=== PATIENT | female | born 1970 | race Caucasian/White ===

== ENCOUNTER 2021-08-05 18:29 | Emergency (ER) | payer OTHER, SELFPAY ==
--- NOTE | 2021-08-05 18:32 | ED.BACK ---
HPI - Back Pain/Injury General Chief Complaint: Back Pain/Injury Stated Complaint: Back Pain Time Seen by Provider: 08/05/21 18:53 Source: patient and RN notes reviewed Mode of arrival: ambulatory Limitations: no limitations History of Present Illness HPI Narrative: 51-year-old female presents with concern for low back pain that radiates to the right leg. 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 She reports aching her neck and low back. She denies taking any rkon-tnr-kayaygn medications. She denies loss of bowel or bladder function, perianal anesthesia, abdominal pain, fever. She denies any direct trauma. She reports pain shoots down the right leg. Reports difficulty walking due to the pain. MD elicited complaint: back pain Related Data Allergies Allergy/AdvReac Type Severity Reaction Status Date / Time latex Allergy Rash Verified 08/05/21 18:48 Review of Systems Review of Systems: CONSTITUTIONAL: Denies malaise, chills, sweats, or fever. CARDIOVASCULAR: Denies chest pain, palpitations, or edema. RESPIRATORY: Denies cough or dyspnea. GASTROINTESTINAL: Denies abdominal pain, nausea, vomiting, diarrhea, loss of bowel function GENITOURINARY: Denies dysuria, hematuria, frequency, loss of bladder function. SKIN: Denies rash or itching. MUSCULOSKELETAL: Reports low back pain neck pain NEUROLOGIC: Denies numbness, weakness, or headache. All systems reviewed & are unremarkable except as noted in HPI and below PMFSH Comments At time of signature, agree with nursing past medical, surgical, social and family history. There is no relevant family history pertinent to the presenting complaint Exam Narrative: GENERAL: Well-appearing, well-nourished, and in no acute distress. HEAD: Normocephalic, atraumatic. EYES: PERRLA and EOMI. NECK: Supple. No lymphadenopathy. CHEST: Clear to auscultation. No respiratory distress. HEART: Regular rate and rhythm. Distal pulses palpable and equal, cap refill <3 seconds ABDOMEN: Soft, nontender, nondistended, normal active bowel sounds, no palpable or pulsatile masses. No CVA tenderness MUSCULOSKELETAL: 5/5 strength with hip flexion and extension, dorsiflexion and extension, knee flexion and extension, plantar flexion and extension. Normal sensation in dermatomal distributions with sensitivity to light touch and pain. No midline back tenderness to palpation. No paraspinal tenderness. Transfers from lying to sitting to standing. SKIN: Warm, dry, no rash. No ecchymosis, erythema, open wounds to back. NEURO: No focal deficits. Alert and oriented x3. PSYCH: Normal mood and affect Course Course Emergency Course: Discussed transfer to emergency department for further evaluation of back pain, patient does not choose to be transferred to emergency department this time. Ketorolac IM given Patient is aware of diagnosis, understands and agrees to treatment plan. Anticipatory guidance given. Patient agrees to follow-up as directed and is aware of reasons to seek care at the emergency department. Portions of this record may have been created with voice recognition software Level of Care: Express Care Visit Vital Signs Vital signs: Reviewed. MDM - Back Pain/Injury MDM Narrative Medical decision making narrative: Exam findings show no acute concerns or changes; patient is non-toxic appearing and is in no distress. Patient is appropriate for outpatient treatment and follow-up. Critical Care Time Critical Care Time Critical Care Time: No Discharge Plan Discharge Clinical Impression: Nonspecific low back pain Patient Disposition: Home, Self-Care Condition: Stable Instructions: Acute Low Back Pain (ED) Additional Instructions: Please follow up with your Primary Care Doctor within 48-72 hours - call for an appointment. Walking and other gentle exercising several times a week has been shown to improve back pain; bed rest is not recommended. Take prednisone as directed, emily
[2021-08-05 18:38] VITALS: BP 140/89; PULSE 87; RESP 16; TEMP 36.8; O2SAT 100
[2021-08-05 18:49] VITALS: BP 140/89; PULSE 87; RESP 16; TEMP 36.8; O2SAT 100
[2021-08-05] MEDS: KETOROLAC (*BKC) 60 MG/2 ML VIAL IM (19:06)
== END 2021-08-05 19:26 | disposition home or self-care (01) ==
PROVIDERS: Emergency Provider Nurse Practitioner
DX: M54.50 Low back pain, unspecified (principal); Z90.13 Acquired absence of bilateral breasts and nipples
CPT/HCPCS: 96372; 99203; G0463; J1885

== ENCOUNTER 2025-05-31 16:48 | Emergency (ER) | payer SELFPAY ==
[2025-05-31 17:06] VITALS: BP 186/91; PULSE 83; RESP 20; TEMP 36.2; O2SAT 100
--- NOTE | 2025-05-31 17:47 | ED.FALL ---
HPI - Fall General Chief Complaint: Fall Stated Complaint: Fall Time Seen by Provider: 05/31/25 17:31 Source: patient, family (sister) and RN notes reviewed Mode of arrival: ambulatory Limitations: no limitations History of Present Illness HPI Narrative: 55-year-old female patient presents today complaining of an abrasion to the left knee after a trip and fall onto concrete 1 hour prior to arrival. She is not up-to-date on her tetanus vaccine. She is also complaining of cough and wheezing times 3-4 days with occasional shortness of breath, rhinorrhea, nasal congestion. Denies fever. She has tried no OTC treatment prior to arrival. Denies asthma or COPD. Related Data Home Medications ?Medication ?Instructions ?Recorded ?Confirmed ?Last Taken ?Type levothyroxine 50 mcg tablet mcg 05/31/25 Unknown History omeprazole 20 mg capsule,delayed mg 05/31/25 Unknown History release rivaroxaban 20 mg tablet (Xarelto) mg 05/31/25 Unknown History Allergies Allergy/AdvReac Type Severity Reaction Status Date / Time latex Allergy Rash Verified 05/31/25 16:50 [facility] Comments At time of signature, I have reviewed and agree with nursing past medical, surgical, social and family history unless otherwise noted. Please see nursing chart for further information. There is no relevant family history pertinent to the presenting complaint Exam Narrative: GENERAL: Well-appearing, well-nourished, and in no acute distress. HEAD: Normocephalic, atraumatic. EYES: EOMI. No redness or drainage. Conjunctivae normal. ENT: Mucous membranes pink and moist. Nares clear. No rhinorrhea. TMs normal bilaterally. Throat normal. Uvula midline. NECK: Normal AROM. Supple. No lymphadenopathy. CHEST: No respiratory distress. Mild Inspiratory and expiratory wheezing in the bilateral upper lobes. Harsh cough noted. HEART: Regular rate and rhythm. No murmur appreciated. Normal peripheral pulses. EXTREMITIES: Left knee: Superficial abrasion to the left patella area measuring approximately 2 x 2 cm. Area cleansed and dressed after arrival. No surrounding bony tenderness. Neurovascularly intact. Full AROM SKIN: Warm, dry, no rash. Capillary refill normal. Normal skin turgor. NEURO: No focal deficits. Alert and oriented x3. Gait steady. PSYCH: Normal affect. No signs of depression or anxiety. Course Course Level of Care: Express Care Visit Vital Signs Vital signs: Vital Signs Temperature 97.2 F L 05/31/25 17:06 Pulse Rate 83 05/31/25 17:06 Respiratory Rate 20 05/31/25 17:06 Blood Pressure 186/91 H 05/31/25 17:06 Pulse Oximetry 100 05/31/25 17:06 Oxygen Delivery Room Air 05/31/25 17:06 Temperature 97.2 F L 05/31/25 17:06 Pulse Rate 83 05/31/25 17:06 Respiratory Rate 20 05/31/25 17:06 Blood Pressure 186/91 H 05/31/25 17:06 Pulse Oximetry 100 05/31/25 17:06 Oxygen Delivery Room Air 05/31/25 17:06 Reviewed MDM MDM Narrative Medical decision making narrative: 55-year-old female patient presents today complaining of an abrasion to the left knee after a trip and fall onto concrete 1 hour prior to arrival. She is not up-to-date on her tetanus vaccine. She is also complaining of cough and wheezing times 3-4 days with occasional shortness of breath, rhinorrhea, nasal congestion. Denies fever. She has tried no OTC treatment prior to arrival. Denies asthma or COPD. Upon exam, patient has a small superficial abrasion to the left patella. Tetanus shot updated. Mild inspiratory and expiratory wheezing in the bilateral upper lobes with harsh cough noted. Patient's URI bronchitis will be treated with some prednisone, albuterol, and Tessalon Perles. Patient agrees with plan. Vital signs stable with elevated blood pressure, anticipatory guidance given. Differential Diagnosis Differential Diagnosis: URI, bronchitis, pneumonia, abrasion, contusion Critical Care Time Critical Care Time Critical Care Time: No Discharge Plan Discharge Clinical Impression: Viral URI with cough, Abrasion of knee, left Patient Disposition: Home Condition: Stable Instructions: Upper Respiratory Infection (DC), Acute Bronchitis (ED), Abrasion (ED) Additional Instructions: Your symptoms are likely due to a viral illness, which is not treated with antibiotics. Virus symptoms can last for up to 7-10days. Take Tylenol or ibuprofen for pain or fever. Take the benzonatate, prednisone, and use albuterol inhaler as prescribed. Rest and stay hydrated. Follow up with your PCP in 5 days if symptoms are not improving. Go to the ER immediately if you develop shortness of breath, difficulty swallowing, or any other concerning symptoms. Wash the abrasion on your knee with soap and water daily and keep covered. You may also apply some Vaseline to keep moist. Monitor for any signs of infection such as redness, swelling, increased pain, or drainage. Patient Language: Bahamian Prescriptions: New benzonatate 200 mg capsule 200 mg PO TID PRN (Reason: cough) Qty: 20 0RF prednisone 50 mg tablet 50 mg PO DAILY 5 Days Qty: 5 0RF albuterol sulfate 90 mcg/actuation HFA aerosol inhaler 2 inh inhalation Q4-6H PRN (Reason: shortness of breath or wheezing) Qty: 8.5 0RF No Action levothyroxine 50 mcg tablet omeprazole 20 mg capsule,delayed release(DR/EC) Xarelto 20 mg tablet Follow-up/Referrals: UNKNOWN,DOCTOR [Primary Care Provider] Stand Alone Forms: Work/School Release IP Time of Disposition: 17:54
[2025-05-31] MEDS: TETANUS,DIPHTHERIA,AC PERTUSSIS ADULT (0.5 ML) BOOSTRIX IM (17:53)
--- OUTSIDE RECORDS SUMMARY | 2025-05-31 18:25 | XMS_ITS | Clinical Summary ---
Author Organization [facility] Address [address] [place] [address] Phone Care Team Providers Care Manager Of Broadcast Content Name Role Phone Shanti Bishop MD Primary Care Provider + [phone] Allergies Active Allergy Reactions Criticality Noted Date Comments Latex Other (see Comments) 03/18/2022 wel Medications Xarelto 20 MG Tablet Take 20 mg by mouth daily. 12/10/2021 Active levothyroxine (SYNTHROID) 50 MCG Tablet Take 50 mcg by mouth daily. 12/07/2021 Active Cholecalciferol (Vitamin D3) 1.25 MG (71419 UT) Capsule TAKE 1 CAPSULE BY MOUTH EVERY WEEK 12/17/2021 Active Active Problems Problem Noted Date Diagnosed Date Deep vein thrombosis (DVT) of left lower extremi ty 03/18/2022 Adenoma of left adrenal gland 03/18/2022 BRCA2 gene mutation positive 03/18/2022 Hemangioma of liver 03/18/2022 Family History Medical History Relation Name Comments Diabetes Father Heart Attack Father Stroke Father Aneurysm Mother Cancer Mother Hypertension Mother Stroke Mother Relation Name Status Comments Father Mother Alive Social History Tobacco Use Types Packs/Day Years Used Date Smoking Tobacco: Every Day Cigarettes 1 34 Smokeless Tobacco: Never Tobacco Cessation:Ready to Q uit: Not Asked; Counseling Given: Not Answered Alcohol Use Standard Drinks/Week Comments Never 0 (1 standard drink = 0.6 oz pur e alcohol) Comments No Sex and Gender Information Value Date Recorded Sex Assigned at Not on file Legal Sex Female 12:07 AM CDT Gender Identity Not on file Sexual Orientation Not on file Last Filed Vital Signs Vital Sign Reading Time Taken Comments Blood Pressure 130/74 01/24/2025 2:51 PM CDT Pulse 75 01/24/2025 2:51 PM CDT Temperature 36.8 C (98.3 F) 01/24/2025 2:51 PM CDT Respiratory Rate 20 01/24/2025 2:51 PM CDT Oxygen Saturation 98% 01/24/2025 2:51 PM CDT Inhaled Oxygen Concentration - - Weight 128.4 kg (283 lb) 08/01/2022 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 Height 162.6 cm (5' 4) 07/19/2022 6:28 PM FORM SETTER/DRIVER Body Mass Index 48.58 07/19/2022 6:28 PM FORM SETTER/DRIVER Plan of Treatment Health Maintenance Due Date Last Done Comments Hepatitis C Virus (HCV) Screening 1971 TdaP Immunization 1971 Hepatitis B Immunization (1 of 3 - 19+ 3-dose series) 1990 Pneumococcal Immunization (5 0+ years) (1 of 2 - PCV) 1990 Pap Smear 1992 Cervical Cancer Screening (CCS) 2001 HPV/Cotest 2001 Cologuard 2016 Colonoscopy 2016 Colorectal Cancer Screening 2016 Immunochemical Fecal Occult Blood 2016 Lung Cancer Screening 2021 Zoster Immunization (1 of 2) 2021 Influenza Immunization (#1) 2025 03/16/2012 SARS-COV-2 Immunization ( - season) 2025 Respiratory Syncytial Virus (RSV) Immunization (Adult) (1 - 1-dose 75+ series) 2046 Human Papillomavirus (HPV) Immunization (No Doses Required) Completed Meningococcal Immunization (ACWY) Aged Out No longer eligible based on patient's age to complete this topic Rotavirus Immunization Aged Out No lo nger eligible based on patient's age to complete this topic Insurance MEDICAID [employer] [facility] Care Teams Manager Of Broadcast Content Relationship Specialty Start Date End Date Shanti Bishop MD [address] [place] [id number] PCP - General Obstetrics & Gynecology 03/18/22
--- OUTSIDE RECORDS SUMMARY | 2025-05-31 18:26 | XMS_ITS | Encounter Summary ---
Author Organization [facility] Address [address] [place] [address] Phone Care Team Providers Care Quartz Mounter Name Role Phone Shanti Bishop MD Primary Care Provider + [phone] Encounter Details Date Type Department Care Team (Late Contact Info) Description 03/26/2022 Telephone [facility] Referral Management Services [address] [place] [address] Serg Silva MD [address] [place] [address] Social History Tobacco Use Types Packs/Day Years Used Date Smoking Tobacco: Every Day Cigarettes 1 34 Smokeless Tobacco: Never Alcohol Use Standard Drinks/Week Comments Never 0 (1 standard drink = 0.6 oz pur e alcohol) Comments Unknown Sex and Gender Information Value Date Recorded Sex Assigned at Not on file Legal Sex Female 12:07 AM CDT Gender Identity Not on file Sexual Orientation Not on file COVID-19 Exposure Response Date Recorded In the last 10 days, have yo u been in contact with someone who was confirmed or suspected to have Coronavirus/COVID-19? No / Unsure 03/18/2022 10:15 AM CDT documented as of this encounter Miscellaneous Notes * [place] - 03/26/2022 10:50 AM CDT Images from the original note were not included. SITUATION: Insurance / Payor requesting provider review MRI ABDOMEN W CONTRAST Referral. BACKGROUND: Referral unable to be processed. ASSESSMENT: Request for provider review due to the following reason(s): Insurance complication. 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
--- OUTSIDE RECORDS SUMMARY | 2025-05-31 18:26 | XMS_ITS | Data Portability ---
Author Organization [facility] TOMMYKaleb Address [address] [place] [address] Care Team Providers Care Patrol Community Service Officer Name Role Phone HEIKE BROWN Primary Care Provider [phone] Assessment Encounter Date Assessment Date Assessment LastModified by Organization Details LastModified Time 04/03/2025 04/03/2025 follow-up in 2 month Pt's case was discussed w/resident. Documentation was reviewed, and I agree w/resident's note. Dr. Barger [email or web address] Not available 04/05/2025 10:33:09 05/04/2025 05/04/2025 Pt's case was discussed w/resident. Documentation was reviewed, and I agree w/resident's note. Dr. Charbel [email or web address] Not available 05/05/2025 07:35:56 Plan of Treatment Reminders Order Date Submit Date Provider Last Modified By Organization Details Last Modified Time Details Appointments None recorded. Lab HbA1c (hemoglobin A1c), blood 2024 025 [facility], [address] [place] [address], [facility] [address], [place], [address], 5 08:20:14 CBC w/ auto diff 2024 025 [facility], [address] [place] [address], [facility] 2, [place], [address], 5 08:20:15 CMP, serum or plasma 2024 025 [facility], [address] [place] [address], [facility] 2, [place], [address], 08:20:13 TSH, ultra-sensi tive, serum 2024 [facility], [address] [place] [address], [address], 08:20:13 Referral None recorded. Procedures None recorded. Surgeries None recorded. Imaging None recorded. Medication Orders chlorhexidi ne gluconate 0.12 % mouthwash 2024 [id number], [address] [place], [address], 18:09:48 amoxicillin 500 mg capsule 2024 025 [id number], [address] [place], [address], 05:02:41 Xarelto 20 mg tablet 2024 025 [facility], [address] [place], [address], 18:09:46 omeprazole 20 mg capsule,del ayed release 2024 025 [facility], [address] [place], [address], 18:09:47 levothyroxi ne 50 mcg tablet 2024 025 [facility]acy #6833, [address] [place], [address], 18:09:47 Zepbound 2.5 mg/0.5 mL subcutaneou s pen injector 2024 [facility] [address] [place], [address], 17:37:13 Wellbutrin XL 150 mg 24 hr tablet, extended release 2024 025 [email or web address] [facility]acy #6833, [address] [place], [address], 17:37:01 Lexapro 20 mg tablet 2024 025 [facility] #6833, [address] [place], [address], 17:36:55 Patient TargetsNo targets recorded. Patient Instructions Encounter Date Encounter Id Patient Instructions Last Modified By Organization Details Last Modified Time 08/22/2024 [id number] Quitting Tobacco : Care Instructions [email or web address] Not available 08/22/2024 16:52:28 Attending Physician Attestation S: 54 yo F here to establish care. Has concerns about depression, lymphedema, and urinary incontinence. Last week, had an episode of urinary incontinence when drinking more iced tea. O: BP 153/86. BMI 50.2. Tearful. Non-pitting edema of feet. A/P: Depression - Not interested in counseling. Increase Lexapro to 20 mg daily and add Wellbutrin as below. RTC in 1 month to evaluate response to meds. Urinary incontinence - Advised lifestyle changes, including avoid bladder irritants. Smoker - Trial Wellbutrin. HTN - Not interested in starting medications. Non-pitting BLE - Recommended compression socks. I did not personally see or examine the patient with the resident. I was physically present to provide indirect supervision through entire encounter. Plan discussed with resident as documented in my brief note above. Silvia Castaneda MD [email or web address] Not available 08/22/2024 18:27:01 02/17/2025 [id number] body mass index: care instructions [email or web address] Not available 02/17/2025 16:56:34 learning about healthy weight [email or web address] Not available 02/17/2025 16:56:34 sleep apnea: car e instructions [email or web address] Not available 02/17/2025 16:56:34 Quitting Tobacco : Care Instructions [email or web address] Not available 02/17/2025 16:56:34 hypothyroidism: care instructions [email or web address] Not available 02/17/2025 16:56:34 I was present an d available in the clinic during the encounter. I discussed the patient's history, exam findings, and plan with the resident physician and agree with the assessment and plan as documented. MD nazario [email or web address] Not available 02/17/2025 16:52:05 04/03/2025 [id number] tooth and gum pain: care instructions [email or web address] Not available 04/03/2025 18:09:41 body mass index: care instructions [email or web address] Not available 04/03/2025 18:09:41 learning about healthy weight [email or web address] Not available 04/03/2025 18:09:41 sleep apnea: car e instructions [email or web address] Not available 04/03/2025 18:09:41 Quitting Tobacco : Care Instructions [email or web address] Not available 04/03/2025 18:09:41 hypothyroidism: care instructions [email or web address] Not available 04/03/2025 18:09:42 Reason for Referral None Reported. Results Created Date Observation Date Name Description Value Unit Range Abnormal Flag Note LastModifiedBy Organization Detail LastModifiedTime 02/18/2002/18/2025 CMP14 +EGFR glucose 97 mg/dL 70-99 Not Available [facility] ([facility]) [address] [place], [address], 02/18/2025 08:20:13 02/18/20 25 02/18/2025 CMP14 +EGFR BUN 12 mg/dL 6-24 Not Available [facility] ([facility]) [address] [place], [address], 02/18/2025 08:20:13 02/18/2002/18/2025 CMP14 +EGFR creatinine 0.71 mg/dL 0.57-1 .00 Not Available [facility] ([facility]) [address] [place], [address], 02/18/2025 08:20:13 02/18/20 25 02/18/2025 CMP14 +EGFR eGFR 102 mL/mi n/1.7 3 >59 Not Available [facility] ([facility]) [address] [place], [address], 02/18/2025 08:20:13 02/18/20 25 02/18/2025 CMP14 +EGFR BUN/creatini ne ratio 17 9-23 Not Available [facility] ([facility]) [address] [place], [address], 02/18/2025 08:20:13 02/18/20 25 02/18/2025 CMP14 +EGFR sodium 139 mmol/ L 134-14 4 Not Available [facility] ([facility]) [address] [place], [address], 02/18/2025 08:20:13 02/18/20 25 02/18/2025 CMP14 +EGFR potassium 4.4 mmol/ L 3.5-5. 2 Not Available [facility] ([facility]) [address] [place], [address], 02/18/2025 08:20:13 02/18/20 25 02/18/2025 CMP14 +EGFR chloride 102 mmol/ L 96-106 Not Available [facility] ([facility]) [address] [place], [address], 02/18/2025 08:20:13 02/18/20 25 02/18/2025 CMP14 +EGFR carbon dioxide, total 23 mmol/ L 20-29 Not Available [facility] ([facility]) [address] [place], [address], 02/18/2025 08:20:13 02/18/20 25 02/18/2025 CMP14 +EGFR calcium 10.4 mg/dL 8.7-10 .2 above high normal Not Available [facility] ([facility]) [address] [place], [address], 02/18/2025 08:20:13 02/18/20 25 02/18/2025 CMP14 +EGFR protein, total 6.5 g/dL 6.0-8. 5 Not Available [facility] ([facility]) [address] [facility], [place], [address], 02/18/2025 08:20:13 02/18/20 25 02/18/2025 CMP14 +EGFR albumin 4.2 g/dL 3.8-4. 9 Not Available [facility] ([facility]) [address] [place], [address], 02/18/2025 08:20:13 02/18/20 25 02/18/2025 CMP14 +EGFR globulin, total 2.3 g/dL 1.5-4. 5 Not Available [facility] ([facility]) [address] [facility], [place], [address], 02/18/2025 08:20:13 02/18/20 25 02/18/2025 CMP14 +EGFR bilirubin, total 0.3 mg/dL 0.0-1. 2 Not Available [facility] ([facility]) [address] [facility], [place], [address], 02/18/2025 08:20:13 02/18/20 25 02/18/2025 CMP14 +EGFR alkaline phosphatase 92 IU/L 44-121 Eff ectiv e Septe mber 2024 Alkal ine Phosp hatas e refer ence inter rochelle will be magaña ing to: Age Male Femal e 0 - 5 days 47 - 127 47 - 127 6 - 10 days 29 - 242 29 - 242 11 - 20 days 109 - 357 109 - 357 21 - 30 days 94 - 494 94 - 494 1 - 2 month s 149 - 539 149 - 539 3 - 6 month s 131 - 452 131 - 452 7 - 11 month s 117 - 401 117 - 401 12 month s - 6 years 158 - 369 158 - 369 7 - 12 years 150 - 409 150 - 409 13 years 156 - 435 78 - 227 14 years 114 - 375 64 - 161 15 years 88 - 279 56 - 134 16 years 74 - 207 51 - 121 17 years 63 - 161 47 - 113 18 - 20 years 51 - 125 42 - 106 21 - 50 years 47 - 123 41 - 116 51 - 80 years 49 - 135 51 - 125 >80 years 48 - 129 48 - 129 Not Available [facility] ([facility]) [address] [place], [address], 02/18/2025 08:20:13 02/18/20 25 02/18/2025 CMP14 +EGFR AST (SGOT) 15 IU/L 0-40 Not Available [facility] ([facility]) [address] [facility], [place], [address], 02/18/2025 08:20:13 02/18/20 25 02/18/2025 CMP14 +EGFR ALT (SGPT) 19 IU/L 0-32 Not Available [facility] ([facility]) [address] [facility], [place], [address], 02/18/2025 08:20:13 02/18/20 25 02/18/2025 TSH RFX ON ABNOR MAL TO FREE T4 TSH 5.440 uIU/m L 0.450- 4.500 above high normal Not Available [facility] ([facility]) [address] [facility], [place], [address], 02/18/2025 08:20:13 02/18/20 25 02/18/2025 HEMOG LOBIN A1C hemoglobin A1C 5.6 % 4.8-5. 6 Predi abete s: 5.7 - 6.4 Diabe jonelle: >6.4 Glyce kailey contr ol for adult s with diabe jonelle: <7.0 Not Available [facility] ([facility]) [address] [place], [address], 02/18/2025 08:20:14 02/18/20 25 02/18/2025 T4F T4,free (direct) 1.48 NG/dL 0.82-1 .77 Not Available [facility] ([facility]) [address] [facility], [place], [address], 02/18/2025 08:20:14 02/18/20 25 02/18/2025 CBC WITH DIFFE RENTI AL/PL ATELE T WBC 7.2 x10e3 /uL 3.4-10 .8 Not Available [facility] ([facility]) [address] [facility], [place], [address], 02/18/2025 08:20:15 02/18/20 25 02/18/2025 CBC WITH DIFFE RENTI AL/PL ATELE T RBC 5.11 x10e6 /uL 3.77-5 .28 Not Available [facility] ([facility]) [address] [facility], [place], [address], 02/18/2025 08:20:15 02/18/20 25 02/18/2025 CBC WITH DIFFE RENTI AL/PL ATELE T hemoglobin 15.0 g/dL 11.1-1 5.9 Not Available [facility] ([facility]) [address] [place], [address], 02/18/2025 08:20:15 02/18/20 25 02/18/2025 CBC WITH DIFFE RENTI AL/PL ATELE T hematocrit 46.1 % 34.0-4 6.6 Not Available [facility] ([facility]) [address] [place], [address], 02/18/2025 08:20:15 02/18/20 25 02/18/2025 CBC WITH DIFFE RENTI AL/PL ATELE T MCV 90 fL 79-97 Not Available [facility] ([facility]) [address] [place], [address], 02/18/2025 08:20:15 02/18/20 25 02/18/2025 CBC WITH DIFFE RENTI AL/PL ATELE T MCH 29.4 pg 26.6-3 3.0 Not Available [facility] ([facility]) [address] [place], [address], 02/18/2025 08:20:15 02/18/20 25 02/18/2025 CBC WITH DIFFE RENTI AL/PL ATELE T MCHC 32.5 g/dL 31.5-3 5.7 Not Available [facility] ([facility]) [address] [facility], [place], [address], 02/18/2025 08:20:15 02/18/20 25 02/18/2025 CBC WITH DIFFE RENTI AL/PL ATELE T RDW 12.0 % 11.7-1 5.4 Not Available [facility] ([facility]) [address] [facility], [place], [address], 02/18/2025 08:20:15 02/18/20 25 02/18/2025 CBC WITH DIFFE RENTI AL/PL ATELE T platelets 281 x10e3 /uL 150-45 0 Not Available [facility] ([facility]) [address] [facility], [place], [address], 02/18/2025 08:20:15 02/18/20 25 02/18/2025 CBC WITH DIFFE RENTI AL/PL ATELE T neutrophils 57 % notest ab. Not Available [facility] ([facility]) [address] [place], [address], 02/18/2025 08:20:15 02/18/20 25 02/18/2025 CBC WITH DIFFE RENTI AL/PL ATELE T lymphs 29 % notest ab. Not Available [facility] ([facility]) [address] [facility], [place], [address], 02/18/2025 08:20:15 02/18/20 25 02/18/2025 CBC WITH DIFFE RENTI AL/PL ATELE T monocytes 8 % notest ab. Not Available [facility] ([facility]) [address] [place], [address], 02/18/2025 08:20:15 02/18/20 25 02/18/2025 CBC WITH DIFFE RENTI AL/PL ATELE T eos 4 % notest ab. Not Available [facility] ([facility]) [address] [facility], [place], [address], 02/18/2025 08:20:15 02/18/20 25 02/18/2025 CBC WITH DIFFE RENTI AL/PL ATELE T basos 2 % notest ab. Not Available [facility] ([facility]) [address] [facility], [place], [address], 02/18/2025 08:20:15 02/18/20 25 02/18/2025 CBC WITH DIFFE RENTI AL/PL ATELE T neutrophils (absolute) 4.1 x10e3 /uL 1.4-7. 0 Not Available [facility] ([facility]) [address] [facility], [place], [address], 02/18/2025 08:20:15 02/18/20 25 02/18/2025 CBC WITH DIFFE RENTI AL/PL ATELE T lymphs (absolute) 2.1 x10e3 /uL 0.7-3. 1 Not Available [facility] ([facility]) [address] [facility], [place], [address], 02/18/2025 08:20:15 02/18/20 25 02/18/2025 CBC WITH DIFFE RENTI AL/PL ATELE T monocytes(ab solute) 0.6 x10e3 /uL 0.1-0. 9 Not Available [facility] ([facility]) [address] [facility], [place], [address], 02/18/2025 08:20:15 02/18/20 25 02/18/2025 CBC WITH DIFFE RENTI AL/PL ATELE T eos (absolute) 0.3 x10e3 /uL 0.0-0. 4 Not Available [facility] ([facility]) [address] [facility], [place], [address], 02/18/2025 08:20:15 02/18/20 25 02/18/2025 CBC WITH DIFFE RENTI AL/PL ATELE T baso (absolute) 0.1 x10e3 /uL 0.0-0. 2 Not Available [facility] ([facility]) [address] [facility], [place], [address], 02/18/2025 08:20:15 02/18/20 25 02/18/2025 CBC WITH DIFFE RENTI AL/PL ATELE T immature granulocytes 0 % notest ab. Not Available [facility] ([facility]) [address] [facility], [place], [address], 02/18/2025 08:20:15 02/18/20 25 02/18/2025 CBC WITH DIFFE RENTI AL/PL ATELE T immature grans (abs) 0.0 x10e3 /uL 0.0-0. 1 Not Available [facility] ([facility]) [address] [facility], [place], [address], 02/18/2025 08:20:15 06/01/20 24 05/19/2024 home sleep study No observ ation record ed. [email or web address] [facility] ([facility]) Scheduling [address] [place], [address], 06/07/2024 13:21:39 Result Notes None recorded. Problems Name Problem SNOMED Code Status Onset Date Resolution Date Notes Provider Name and Address Organization Details Recorded Time BRCA2 gene mutation detected 591198667 Active 2009 s/p preventiv e jayna mastectom ies, neg pathology Yokasta Banegas PA-C Attn: Pati g,[address] [facility], [place], [address], [facility] 8 13:42:15 Malignan t neoplasm of breast 994813189 Completed 201009/16/2017 BRA Yokasta Banegas PA-C Attn: Pati g,[address] [facility], [place], [address], [facility] 8 13:37:11 Lumbago with sciatica 524510218 Completed 201706/16/2023 Shanti Loredo MD Attn: Charlienaseem may,[address] [facility], [place], [address], [place] [facility] 4 15:22:22 Allergic rhinitis 29439587 Completed 201703/04/2022 Cheyanne Carr MA null, [place] [facility] 2 09:44:04 Increase d frequenc y of urinatio n 298374624 Completed 201706/16/2023 Shanti Loredo MD Attn: Pati lalo,[address] [facility], [place], [address], [place] [facility] 4 15:21:45 Liver function tests outside referenc e range 903318643 Completed 201706/16/2023 Shanti Loredo MD Attn: Pati may,[address] [facility], [place], [address], [place] [facility] 4 15:22:06 Obstruct mark sleep apnea syndrome 76268599 Completed 201706/16/2023 Shanti Loredo MD Attn: Pati lalo,[address] [facility], [place], [address], [place] [facility] 4 13:22:30 Obstruct mark sleep apnea syndrome 68268998 Active 2017 Shanti Loredo MD Attn: Pati may,[address] [facility], [place], [address], [place] [facility] 4 13:22:30 Family history of breast cancer 2 gene mutation 576495596 Active 2017 mom who had breast & ovarian cancer Yokasta Banegas PA-C Attn: Pati may,[address] [facility], [place], [address], [place] [facility] 8 13:38:47 Vitamin D deficien 73244525 Active 2017 Yokasta Banegas PA-C Attn: Pati may,[address] [facility], [place], [place], [address] [place] [address] 2, [facility] 8 11:49:03 Morbid obesity 297380256 Active 2021 Shahla Neil APN, FNP-C Attn: Pati g,[address] [facility], [place], [place], [address] [place] [address] 2, [facility] 2 10:26:10 Lumbago with sciatica 480126425 Active 2021 Shahla Neil APN, FNP-C Attn: Charliein g,[address] [facility], [place], [place], [address] [place] [address] 2, [facility] 2 10:26:34 Gastroes ophageal reflux disease without esophagi tis 511883363 Active 2021 Shahla Neil APN, FNP-C Attn: Pati g,[address] [facility], [place], [place], [address] [place] [address] 2, [facility] 2 10:38:01 Tobacco user 836207706 Active 2021 Shahla Neil APN, FNP-C Attn: Pati g,[address] [facility], [place], [place], [address] [place] [address] 2, [facility] 2 10:38:02 Prediabe jonelle 739570562 Active 2021 Shahla Neil APN, FNP-C Attn: Pati g,[address] [facility], [place], [place], [address] [place] [address] 2, [facility] 2 10:25:01 Hypothyr oidism 69060933 Active 2021 Shahla Neil APN, FNP-C Attn: Pati g,[address] [facility], [place], [place], [address] [place] [address] 2, [facility] 2 10:25:17 Edema of lower extremit y 943035008 Active 2021 Shahla Neil APN, FNP-C Attn: Pati g,[address] [facility], [place], [address], [place] [facility] 2 23:52:12 Pain in lower limb 33382735 Completed 202106/16/2023 Shanti Loredo MD Attn: Accountnaseem may,[address] [facility], [place], [address], [place] [facility] 4 15:23:01 Deep venous thrombos is of lower extremit y 217416692 Active 2021 CHARLA ArceN, PANEL BEATER-C Attn: Accountin g,[address] [facility], [place], [address], [place] [facility] 2 12:56:35 Hyperten sive disorder 41786171 Active 2021 Shanti Loredo MD Attn: Accountnaseem may,[address] [facility], [place], [address], [place] [facility] 2 11:13:12 Adrenal mass 561374088 Active 2021 Shanti Loredo MD Attn: Accountnaseem may,[address] [facility], [place], [address], [place] [facility] 2 11:14:15 Liver mass 853141598 Active 2021 Shanti Loredo MD Attn: Charlienaseem may,[address] [facility], [place], [address], [place] [facility] 2 11:14:18 Lymphede ma of lower extremit y 869655205 Active 2023 Arnaldo Tran MD Attn: Accountnaseem g,[address] [facility], [place], [address], [place] [facility] 4 20:48:28 Excision of bilatera l breasts Active 202301-21-2010 Shanti Loredo MD Attn: Accountin g,[address] [facility], [place], [address], [place] [facility] 4 05:31:11 Problem Notes None recorded. Procedures Surgical History Date Name Laterality Status Provider Name and Address Organization Details Recorded Time 11/25/19 24 Date of Last Pap Smear completed Bernadette Sampson MA [facility] 04/03/2025 17:03:02 06/15/19 12 Other completed Bernadette Sampson [facility] 11/17/2017 14:30:25 06/15/19 11 Nipple/areola reconstruction completed Yokasta Banegas PA-C Attn: Accounting,[address] [facility], [place], [address], [facility] 09/16/2017 13:41:36 01/22/20 10 Mastectomy completed Yokasta Banegas PA-C Attn: Accounting,[address] [facility], [place], [address], [facility] 09/16/2017 13:41:56 Imaging Results None recorded. Procedure Notes None recorded. Medical Equipment None Reported. Allergies Allergen ID Allergen Name Allergen Category Reaction Reaction Severity Criticality Documentation Date Start Date Code Code System Note Provider Name and Address Organization Details Recorded Time 303293 latex environme nt,medica tion rash Not available Not available 03/04/2022 83966 91 RxNorm red welps - whitaker id adhes JORDON Murray, [facility] 5 16:02:31 329049 Adhesive agent (substanc e) environme nt,medica tion Not available Not available low 04/03/20252023 41219 0007 SNOMED unrec ogniz ed react ion (text : Natalia ss, code: [id number]) (from exter nal sourc e) Not Available anel - External Data Service - prod 5 07:44:17 Medications Name Sig Start Date Stop Date Status Note LastModified by Organization Details LastModified Time cetirizine 5 mg-pseudoe phedrine ER 120 mg tablet,ext ended release,12 hr Take 1 tablet every 12 hours by oral route as needed. 10/28 completed Not Available Not Available Not Available cyclobenza sejal 10 mg tablet 08/16 completed Not Available Not Available Not Available amoxicilli n 500 mg capsule Take 1 capsule 3 times a day by oral route with meal(s) for 10 days. 04/20 completed Not Available Not Available Not Available trazodone 50 mg tablet take 1 tab PO at bedtime NEEDED for sleep 07/16 completed Not Available Not Available Not Available cetirizine 10 mg tablet TAKE 1 TABLET BY MOUTH EVERY DAY FOR 30 DAYS 11/23 completed Not Available Not Available Not Available azithromyc in 250 mg tablet TAKE 2 TABLETS BY MOUTH TODAY, THEN TAKE 1 TABLET DAILY FOR 4 DAYS DIRECTED 07/16 completed Not Available Not Available Not Available ibuprofen 800 mg tablet Take 1 tablet 3 times a day by oral route as needed. 07/16 completed Not Available Not Available Not Available fluconazol e 150 mg tablet TAKE 1 TABLET IF SIGNS OF YEAST INFECTIO N OCCUR AND 1 TABLET 1 WEEK LATER 10/26 completed Not Available Not Available Not Available benzonatat e 200 mg capsule TAKE 1 CAPSULE BY MOUTH THREE TIMES A DAY NEEDED FOR COUGH 08/22 completed Not Available Not Available Not Available meloxicam 15 mg tablet TAKE 1 TABLET BY MOUTH EVERY DAY 06/16 completed Not Available Not Available Not Available prednisone 20 mg tablet 08/16 completed Not Available Not Available Not Available clonazepam 0.5 mg tablet take half to full tablet by mouth as needed 3 times a day NEEDED for anxiety 07/16 completed Not Available Not Available Not Available methylergo novine 0.2 mg tablet TAKE 1 TABLET (0.2 MG) BY MOUTH 3 TIMES DAILY NEEDED FOR OTHER (SEE COMMENT) (VAGINAL BLEEDING ). 10/09 completed PRN Not Available Not Available Not Available metronidaz ole 500 mg tablet TAKE 1 TABLET BY MOUTH TWICE A DAY FOR 7 DAYS 02/28 completed Not Available Not Available Not Available doxycyclin e monohydrat e 100 mg tablet Take 1 tablet twice a day by oral route for 10 days. 08/24 completed Not Available Not Available Not Available acetaminop hen 500 mg tablet active pt is not taking 02/17/25 Not Available Not Available Not Available levothyrox ine 25 mcg tablet TAKE 1 TABLET BY MOUTH EVERY DAY 10/07 completed Not Available Not Available Not Available Nexium 20 mg capsule,de layed release Take 1 capsule every day by oral route. 03/25 completed Not Available Not Available Not Available famotidine 20 mg tablet TAKE 1 TABLET BY MOUTH TWICE DAILY 07/16 completed Not Available Not Available Not Available doxycyclin e monohydrat e 100 mg capsule TAKE 1 CAPSULE BY MOUTH TWICE A DAY FOR 7 DAYS FOR SINUSITI S 10/26 completed Not Available Not Available Not Available levothyrox ine 50 mcg tablet TAKE 1 TABLET BY MOUTH EVERY DAY 2024 active Not Available Not Available Not Avai lable sertraline 25 mg tablet take one tab PO x 5 days then increase to 2 tabs PO daily 2018 active Not Available Not Available Not Avai lable omeprazole 20 mg capsule,de layed release TAKE 1 CAPSULE BY MOUTH EVERY DAY active Not Available Not Available No t Available montelukas t 10 mg tablet Take 1 tablet every day by oral route. 11/17 completed Not Available Not Available Not Available hydrochlor othiazide 25 mg tablet TAKE 1 TABLET BY MOUTH EVERY DAY 10/09 completed Pt states not taking med Not Available Not Available Not Available diclofenac sodium 50 mg tablet,del ayed release Take 1 tablet twice a day by oral route with meals. 10/04 completed Not Available Not Available Not Available furosemide 20 mg tablet Take 1 tablet every day by oral route for 5 days, for leg swelling . 11/23 completed Not Available Not Available Not Available ibuprofen 600 mg tablet 08/22 completed Not Available Not Available Not Available methylpred nisolone 4 mg tablets in a dose pack take as directed 10/28 completed Not Available Not Available Not Available Vitamin D2 1,250 mcg (50,000 unit) capsule Take 1 capsule every week by oral route. 12/21 completed Not Available Not Available Not Available fluticason e propionate 50 mcg/actuat ion nasal spray,susp ension [place] 1 spray every day by intranas al route. 03/25 completed Not Available Not Available Not Available sertraline 50 mg tablet TAKE 1 TABLET BY MOUTH EVERY DAY 07/16 completed Not Available Not Available Not Available dicyclomin e 10 mg capsule Take 1 capsule 3 times a day by oral route before meals. 01/11 completed Not Available Not Available Not Available loratadine 10 mg tablet TAKE 1 TABLET BY MOUTH EVERY DAY NEEDED FOR ALLERGY active not taking 5 Not Available Not Available Not Available naproxen 500 mg tablet Take 1 tablet twice a day by oral route. 05/17 completed Not Available Not Available Not Available amoxicilli n 875 mg-potassi um clavulanat e 125 mg tablet Take 1 tablet every 12 hours by oral route for 10 days. 10/28 completed Not Available Not Available Not Available Ventolin HFA 90 mcg/actuat ion aerosol inhaler 11/17 completed Not Available Not Available Not Available oxycodone 5 mg tablet 08/22 completed Not Available Not Available Not Available escitalopr am 10 mg tablet TAKE 1 TABLET BY MOUTH EVERY DAY 04/03 completed 5 pt is not taking Not Available Not Available Not Available escitalopr am 20 mg tablet TAKE 1 TABLET BY MOUTH EVERY DAY 04/03 completed 5 pt is not taking Not Available Not Available Not Available cyclobenza sejal 5 mg tablet TAKE 1 TABLET BY MOUTH THREE TIMES A DAY NEEDED FOR MUSCLE SPASMS 10/09 completed PRN Not Available Not Available Not Available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 weeks [id number] MD Cassie Moran [address] [facility] [place] [address] 10/09/2023 15:55:17 10/14/2023 13:11:39 Acute sinusitis 39244680 J01.90 Patient with history of acute sinusitis presenting with same symptoms, afebrile with no alarm symptoms encouragin g prognosisw ill send doxycyclin e monohydrat e 100 mg twice daily for 7 days also prescribed Diflucan 150 mg x 2 in case of yeast infection [id number] MD Cassie Hanson [address] [facility] [place] [address] 10/27/2023 16:14:15 10/28/2023 12:43:48 Lymphedema of lower extremity 292666789 I89.0 Stemmer's sign negative on LLE, base of 2nd toe. No signs of cellulitis . Doubt DVT.- short course of lasix ordered- liu to management will be medical grade compressio n stockings (ordered and patient to be fitted - told to call [facility] back if does not hear in 2 weeks) and leg elevation- DASH diet reviewed- staff has already sent request for results of venous dopplers- Patient given PT/OT orders - will call once can rule out DVT Essential hypertension 70646614 I10 143/81 today- Patient instructed to restart HCTZ 25mg, was not taking- Take BP daily- RTC in 1 month Morbid obesity 046712817 E66.01 Smoker 70867356 F17.200 e-cigs, was smoking 1ppd for 31 yearsDiscu ss LDCT screening at next visit [place] affect 367076 R45. 89 Previous history of depression - last on meds 3 years ago per chart reviewPHQ- 9 negative for depression Follow up on next visit Depression screening 171 895762 Z13.31 negative with PHQ-9: 0 [id number] Shanti Loredo MD Cassie [address] [facility] [address] [place], [place] [address], [place] [address] 11/24/2023 16:08:06 11/25/2023 11:29:40 Well woman monitoring status 271457748 Z76.89 Age group: 50-64Breas t Health: above avg Patient with hx of benign breast mass and BRCA + gene. Opted for double mastectomy and currently has implants placed. 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 Opted for double mastectomy and currently has implants placed. Hypertensive disorder 38 606855 I10 BP wnl today. Gynecologi c examination 43533676 Z01.419 Cyst of ri ght Bartholin's gland duct 8191164471 3310607 N75.0 present for several years with flucuating size and tenderness [id number] MD Cassie Mccormack [address] [facility] [address] [facility] [place] [address] 02/29/2024 16:49:47 03/16/2024 19:33:15 Decreased hearing 393077213 H91.92 Snoring 18573569 R06.83 Patient reports a history of fatigue, gurgling at night and daytime somnolence . [place] scoring not significan t but with reported symptoms believe patient still warrants a sleep study. Patient very anxious and requesting a home study if possible.- anticipato ry guidance, reassuranc e and education provided- referral placed- follow up prn Body mass index 40+ - severely obese 049173686 Z68.42 Continues to be concerned about weight and weight loss. Patient would now like to explore medicinal options.- anticipato ry guidance, reassuranc e and education provided- pharmacist referral- follow up prn [id number] MD Cassie PATE [address] [facility] [address] [place], [place] [address], [place] [address] 08/22/2024 15:31:43 08/29/2024 12:49:11 Depressive disorder 60767768 F32.A Chronic, unstablePH Q -9 score of 20.Current ly on Lexapro 10 mg, which she feels is not doing much and would like a dose increase.I ncrease lexapro 10 mg to 20 mg.No SI/HI. Recommende d counseling but patient not interested at this time. Smoker 04939698 F17.200 smoking 1ppd for 31 years.Perla ent reports trying wellbutrin in the past which helped cut down her craving. She is willing to try again. Lymphedema of lower extremity 555348223 I89.0 Chronic, stableReco mmend compressio n stockings knee high Essential hypertension 70086896 I10 BP 153/86, elevated.C urrently not on BP medication and not interested at this time.Discu ssed about lifestyle modificati on, dash diet to help lower BP.Plan to follow up within a month, if no improvemen t will attempt to start HTN treatment. Urinary incontinence 165 016863 R32 Chronic, condition. Ongoing for the past few years now.Discus sed with patient about making some life changes that makes her symptoms worse such as drinking lots of sugary drinks and frequently holding her urine until the last min, which leads to accidents. Discussed holding off on trying medication and urologist referral. If symptoms persist with lifestyles changes then will consider meds, pelvic floor therapy and urologist consult. [id number] Miky Espinosa MD [place] [address] [facility] [place] [address] 02/17/2025 15:49:29 05/16/2025 14:29:25 Lymphedema of lower extremity 107270027 I89.0 Chronic, stableReco mmend compressio n stockings knee high Depressive disorder 3548 9007 F32.A Chronic, unstablePH Q -9 score of 0 today.Was Lexapro 20 mg. Patient states she stopped taking her medication . Not interested in restarting or therapy at this time. Essential hypertension 66245093 I10 ChronicBP 126/84Curr ently not on BP medication and not interested at this time.Will check cmp. Smoker 65279117 F17.200 smoking 1ppd for 31 years. Body mass index 40+ - severely obese 797071751 E66.01 5530494 BMI was 48.2 in office today. Will check A1c Obstructiv e sleep apnea syndrome 08092921 G47.33 87472166 ChronicHom e sleep study showed moderate LEORA 03/2024.Di scussed trying Zepbound to help with LEORA and elevated BMI. Patient agreeable. Plan- Start Zebound 2.5 mg weekly SQ- Check cbc today- Follow-up in 1 month Hypothyroidism 49121796 E03.9 ChronicSto pped taking medication as she thought it was contributi ng to her gaining weight. Provided education and encouraged patient to restart medication . Will check TSH today. Deep venou s thrombosis of lower extremity 634031598 I82.409 Hx of DVTWas following with hematology .stopped taking xarelto, decline follow-up with hematology . Strongly encouraged patient to restart mediation and follow-up with hematology . Discussed risks of stopping xarelto such as increased risks of more DVT, stroke, ID, etc. Patient voiced understand ing but still declined at this time. Will provide refills if needed in the future. Pain of knee region 1003 470272 M25.561 M25.562 G89.29 41417754 ChronicMos t likely OADiscusse d options such as continuing supportive care vs other treatment options such as PT, ortho referral for possible injections vs surgery. Patient opts for supportive care at home at this time. Pain in right foot 96284 00677 65106 M79.671 097923 Discussed [id number] Baudilio Barger MD [place] [address] [facility] [address] [place] [address] 04/03/2025 16:51:13 04/05/2025 11:35:37 Obstructive sleep apnea syndrome 87603993 G47.33 61679265 ChronicHom e sleep study showed moderate LEORA 03/2024.Di scussed trying Zepbound to help with LEORA and elevated BMI. Zepbound denied by insurance. Will continue to encourage CPAP use. Smoker 69233500 F17.200 smoking 1ppd for 31 years. Body mass index 40+ - severely obese 599130251 E66.01 8692520 BMI was 50 in office today. Hypothyroidism 87770684 E03.9 ChronicPer last visit, pt stopped taking medication as she thought it was contributi ng to her gaining weight and didn't want to restart.La st TSH was elevated at 5.4.Patien t requesting refills on levo today. Plan- Restart levothyrox ine 50 mcg daily Deep venou s thrombosis of lower extremity 508311573 I82.409 Hx of DVTWas following with hematology .Per last visit pt stopped taking xarelto, and declined follow-up with hematology . She requests refills and expresses that she wants to continue taking xarelto today. Plan- Script sent in to restart Xarelto 20 mg tablet daily- will continue at future visits to encourage her to follow-up with hematology Gastroesop hageal reflux disease without esophagitis 569257945 K21.9 Chronic,Pt states she lost her medicine and would like refills today. States that this medication is helping control her GERD symptoms. Plan- restart omeprazole 20 mg daily Toothache 66985552 K08.8 9 03348 AcutePainf ul to palpation. tooth decay noted on exam. Patient reports possible fevers. Hurts to chew. Encouraged patient to call dentist for possible earlier appointmen t. Will give a course of antibiotic s and antiseptic mouthwash today. [id number] Baudilio Barger MD [place] [address] [facility] [place] [address] 05/04/2025 09:07:17 05/05/2025 11:17:12 Cellulitis of left lower limb [id number] 7697839 L03.908 6271537 Acute, stable- patient reports improved pain, Left L/E edema and erythema that does not limit her gait. Currently on Day 2 of antibiotic s. Patient is currently on Xarelto which can impair wound healing process- improving cellulitis with no systemic symptoms; no abscess formation. Vitals stable- continue Keflex 500 mg tid for a total of 7 days- continue mupirocin 2 % ointment, tid- discussed elevation of L/E to reduce edema- discussed red flag symptoms of spreading erythema or streaks, new drainage, fever or increasing pain, to seek immediate medical attentionF /U prn Health Concerns Section Related Observation LastModified by Organization Detai ls LastModified Time None Recorded Concern Status LastModified by Organization Details LastModified Time None Recorded Advance Directives Directive N: Payers Insurance Date Sequence Insurance Name Policy Number Policy Haley Covered Member ID Haley Member ID Guarantor Name 07/25/2020 1 *SELF PAY* August Masterson 11/25/2017 SLIDING FEE SCHEDULE - DISCOUNT Keiko Masterson 08/22/2024 [place] [employer] [place] [employer] Keiko Masterson [id number] Keiko Masterson 08/22/2024 1 [place] Keiko Masterson [id number] Keiko Masterson 08/22/2024 1 [facility] (MEDICAID HMO) [id number] Keiko Masterson [id number] Keiko Masterson 05/04/2025 1 [employer] [place] - DOS ON OR AFTER 2020 (MEDICAID REPLACEMENT - HMO) Keiko Masterson [id number] Keiko Masterson 08/22/2024 1 [place] Keiko Masterson [id number] Keiko Masterson 08/22/2024 1 [facility] (MEDICAID HMO) [id number] Keiko Masterson [id number] Keiko Masterson Notes Date Note Type Note Provider Name and Address Organization Details Recorded Time 03/08/2024 text/html wants a glp1 for weight losstrying to watch what she eatsraising 4 children - busy lifestyleEats snacks frequently - cakes, watermelon tea, eating 2 - 3 packs per day.Waits until dinnertime to eat a full meal - 6-8:30 - Pizza, sometimes she doesn't eat no additional movement. has no free time. Discussed having anxiety thinking about cutting out sweets not having bowels movements 1x per week went over glp1 education lipoband - no interested (has had many surgeries, if afraid of going under the knife again) Goal = losing 150 lbs focus on the first 20 times. Not Available Not Available Not Available 08/22/2024 text/html ROS as noted in the HPI Keiko is a 54 yo F with pmh of hypothyroidism, LEORA, HTN, edema of lower extremity, GERD who is presenting today with concerns of worsening lower extremity edema and loss of bladder function. Urinary incontinent - Pt reports experiencing loss of bladder control last week after standing up with no sign of needing to pee. She reports losing bladder control multiple times a day throughout the week. She reports worsening symptoms with drinking lots of tea and improvement in her symptoms when she switched to drinking more water. SILVIA CASTANEDA MD Attn: [address]ing[address] [place], [address], [facility] 08/28/2024 22:14:39 02/17/2025 text/html ROS as noted in the HPI Kekio is a 54 yo F with pmh of anticoagulation therapy s/p DVT; hypothyroidism, BRCA positive- bilateral mammectomy in 2010, LEORA and back pain, HTN, edema of lower extremity, GERD who is presenting today re-establish care for PCP. Patient states that she stopped taking all of her medications Foot pain- tripped over a rug while running after nephew, happened ~ 2.5 months ago- was wrapping it for awhile, it is improving- hurts to walk- not taking any medication for pain- Declines referral at this time Knee painPatient is c/o bilateral knee pain - they pop a lot, with every step- works at [employer] started 2.5 months ago- burning pain- no medication Headachespt has also been getting frequent headaches. Miky Espinosa MD Attn: Accounting[address] [facility], [place], [address], [facility] 02/22/2025 11:10:38 04/03/2025 text/html ROS as noted in the HPI Keiko is a 54 yo F with pmh of anticoagulation therapy s/p DVT; hypothyroidism, BRCA positive- bilateral mammectomy in 2010, LEORA and back pain, HTN, edema of lower extremity, GERD who is presenting today for follow-up visit Patient states today that she lost her medications while moving and is needing refills. Tooth painstarted 5 days agodentist appointment first of the yearHurts to chew and swallow Also notes bilateral knee pain again today but decided to hold off further work-up today and wants to follow-up on them at next visit. ROS negative for fever, chills, vision changes, SOB, chest pain, N/V, diarrhea, dysuria, increased urinary frequency, hematuria, abnormal bruising, or abnormal joint pain. Baudilio Barger MD Attn: Accounting[address] [facility], [place], [address], [facility] 04/05/2025 10:33:23 05/04/2025 text/html 54 y/o F with PMHx of anticoagulation therapy s/p DVT; hypothyroidism, BRCA positive- bilateral mammectomy in 2010, LOERA and back pain, HTN, edema of lower extremity, GERD who is presenting for an urgent care followup visit. Left leg cellulitisShe reports that she fell while climbing stairs and started having L leg pain with edema- had used ibuprofen with limited improvement, so she went to [facility] Discharge with the following medications/treatmen t:- Keflex 500 mg 3 times a day for 7 days and mupirocin (BACTROBAN) 2 % ointment, tid - Today, she states that redness/swelling has slightly improved but still reports clear drainage- pain: has improved about 50%- just started mupirocin lotion yesterday due to insurance coverage issues- has been able to walk without difficulty- currently on Day 2 of antibiotics (Keflex)- denies any GI upset, rash, diarrhea- denies any new cuts, bites or injuries Baudilio Barger MD Attn: Accounting[address] [facility], [place], [address], [place] [facility] [place] 05/05/2025 07:36:36 OBGyn Episode Ob Episode Information Episode Created Date Number of Fetuses Patient Bloodtype Patient rh Status Prepregnancy Weight lbs Domestic Partner Domestic Partner Phone Father Name Boom Stick Man Status 11/18/19 18 1 CLOSED Fetus Data First Name Last Name Admitted to NICU Weight (g) Sex Living Outcome Pediatric Complications Fetus ID Race Codes Race Delivery Type , Spontane ous [id number] Juan J Calculation Initial Juan J Date Initial Exam Date Initial Exam Provider Initial Ultrasound Date Last Menstrual Period Date Ultra Sound Weeks Gestation 0 Eighteen To Twenty Week Juan J Update Ultra Sound Date Fundal Height At Umbil Quickening Date Ultra Sound Latest Weeks Gestation Final Juan J Confirmed By Final Juan J Confirmed Date Final Juan J Date Ultra Sound Latest Days Gestation 0 0 Menstrual History Last Menstrual Date Menses Monthly On Bcp Conception Prior Menses Frequency Hcg Plus Date Menarche Onset Age Delivery Information Delivery Date Delivery Type Labor Anesthesia Weeks Gestation Incision Type Labor Labor Length Hrs Delivered By Post Complications Tubal Sterilization Discharge Date Comments 2 Discharge Information Feeding Method Contraceptive Method Maternal HG B and HCT Levels Ob Episode Information Episode Created Date Number of Fetuses Patient Bloodtype Patient rh Status Prepregnancy Weight lbs Domestic Partner Domestic Partner Phone Father Name Boom Stick Man Status 11/18/19 18 1 CLOSED Fetus Data First Name Last Name Admitted to NICU Weight (g) Sex Living Outcome Pediatric Complications Fetus ID Race Codes Race Delivery Type 2778.25 1 F Full Term [id number] Vaginal Juan J Calculation Initial Juan J Date Initial Exam Date Initial Exam Provider Initial Ultrasound Date Last Menstrual Period Date Ultra Sound Weeks Gestation 0 Eighteen To Twenty Week Juan J Update Ultra Sound Date Fundal Height At Umbil Quickening Date Ultra Sound Latest Weeks Gestation Final Juan J Confirmed By Final Juan J Confirmed Date Final Juan J Date Ultra Sound Latest Days Gestation 0 0 Menstrual History Last Menstrual Date Menses Monthly On Bcp Conception Prior Menses Frequency Hcg Plus Date Menarche Onset Age Delivery Information Delivery Date Delivery Type Labor Anesthesia Weeks Gestation Incision Type Labor Labor Length Hrs Delivered By Post Complications Tubal Sterilization Discharge Date Comments 6 Discharge Information Feeding Method Contraceptive Method Maternal HG B and HCT Levels
--- OUTSIDE RECORDS SUMMARY | 2025-05-31 18:26 | XMS_ITS | Clinical Summary ---
Author Organization [facility] Address [address] [place] [address] Phone Care Team Providers Care Veneer Glue Jointer Feedback Name Role Phone Unavailable Primary Care Provider Unavailabl e Medications methylergonovine (METHERGINE) 0.2 mg tablet Take 1 Tablet (0.2 mg) by mouth 3 times daily as needed for Other (See Comment) (Vaginal bleeding). 15 Tablet 01/13/2022 Active sodium chloride 0.9 % irrigation Solution Apply 1 mL on the skin three times a day 1000 mL 1 02/06/2022 11:24 AM CDT 01/29/2022 Active metroNIDAZOLE (FLAGYL) 500 mg tablet Take 1 Tablet (500 mg) by mouth 2 times daily. 14 Tablet 02/06/2022 11:24 AM CDT 02/05/2022 Active Social History Tobacco Use Types Packs/Day Years Used Date Smoking Tobacco: Never Assessed Comments Unknown Sex and Gender Information Value Date Recorded Sex Assigned at Not on file Legal Sex Female 4:23 PM CDT Gender Identity Not on file Sexual Orientation Not on file Last Filed Vital Signs Vital Sign Reading Time Taken Comments Blood Pressure 168/111 01/13/2022 11:20 PM CDT denies symptoms- states its from stress Pulse 76 01/13/2022 4:00 PM CDT Temperature 36.7 C (98 F) 01/13/2022 11:20 PM CDT Respiratory Rate 18 01/13/2022 11:2 0 PM CDT Oxygen Saturation 99% 01/13/2022 11: 20 PM CDT Inhaled Oxygen Concentration - - Weight - - Height - - Body Mass Index - - Plan of Treatment Health Maintenance Due Date Last Done Comments DTAP/TDAP/TD VACCINES (1 - Tdap) 1990 HEPATITIS B VACCINES (1 of 3 - 19+ 3-dose series) 03/16 HPV/Cotest (21-29) 1992 CERVICAL CANCER SCREENING 2001 HPV/Cotest (30-65) 2001 PAP SMEAR 2001 BREAST CANCER SCREENING 2011 COLORECTAL SCREENING 2016 Colorectal Cancer Screening 2016 FIT-DNA Q 3 years 2016 FIT/FOBT Q 1 year 2016 Flex Sig/CT Colonography Q 5 years 2016 ZOSTER VACCINE (1 of 2) 2021 INFLUENZA VACCINE (#1) 2025 03/16/2012 Insurance [employer] BETTER [employer] [place] MEDICAID RX [employer] (INTERNAL) [facility]
--- OUTSIDE RECORDS SUMMARY | 2025-05-31 18:26 | XMS_ITS | Encounter Summary ---
Author Organization [facility] Address [address] [place] [address] Phone Care Team Providers Care Wall Worker Name Role Phone Shanti Bishop MD Primary Care Provider [phone] Encounter Details Date Type Department Care Team (Late st Contact Info) Description 10/08/2023 Transcribe Orders [facility] Central Scheduling [address] [place] [address] Shanti Bishop MD [address] [place] [address] [address] [place] [address] Social History Tobacco Use Types Packs/Day [...] on file Sexual Orientation Not on file documented as of this encounter Plan of Treatment Not on file documented as of this encounter Visit Diagnoses Not on filedocumented in this encounter Care Teams Wall Worker Relationship Specialty Start Date End Date Shanti Bishop MD [address] [facility] [address] [place] [address] PCP - General Obstetrics & Gynecology 03/18/22 documented as of this encounter
--- OUTSIDE RECORDS SUMMARY | 2025-05-31 18:26 | XMS_ITS | Continuity of Care Document ---
Author Organization [facility] Gurdeep LAINEZ [address] [place] [address] Care Team Providers Care Shuttle Operator Name Role Phone HEIKE BROWN Primary Care Provider [phone] Assessment Encounter Date Assessment Date Assessment LastModified by Organization Details LastModified Time 05/04/2025 05/04/2025 Pt's case was discussed w/resident. Documentation was reviewed, and I agree w/resident's note. Dr. Barger Not available 05/05/2025 07:35:56 Plan of Treatment Reminders Order Date Submit Date Provider Last Modified By Organization Details Last Modified Time Details Appointments None record ed. Lab None record ed. Referral None record ed. Procedures None record ed. Surgeries None record ed. Imaging None record ed. Medication Orders None record ed. Patient TargetsNo targets recorded. Patient InstructionsNo instructions recorded. Reason for Referral None Reported. Problems Name Problem SNOMED Code Status Onset Date Resolution Date Notes Provider Name and Address Organization Details Recorded Time BRCA2 gene mutation detected 479880905 Active 2009 s/p preventiv e jayna mastectom ies, neg pathology Yokasta Banegas PA-C Attn: Pati g,[address] [facility], [place], [address], [facility] - [facility] 8 13:42:15 Malignan t neoplasm of breast 973045892 Completed 201009/16/2017 BRA Yokasta Banegas PA-C Attn: Accountnaseem g,[address] [facility], [place], [address], [facility] 8 13:37:11 Lumbago with sciatica 516983906 Completed 201706/16/2023 Shanti Loredo MD Attn: Pati may,[address] [facility], [place], [address], [place] - [facility] 4 15:22:22 Allergic rhinitis 00582834 Completed 201703/04/2022 Cheyanne Carr [place] null, [place] [facility] 2 09:44:04 Increase d frequenc y of urinatio n 470680301 Completed 201706/16/2023 Shanti Loredo MD Attn: Charlienaseem may,[address] [facility], [place], [address], [place] [facility] 4 15:21:45 Liver function tests outside referenc e range 009807357 Completed 201706/16/2023 Shanti Loredo MD Attn: Charlienaseem may,[address] [facility], [place], [address], [place] [facility] 4 15:22:06 Obstruct mark sleep apnea syndrome 75355013 Completed 201706/16/2023 Shanti Loredo MD Attn: Pati may,[address] [facility], [place], [address], [place] [facility] 4 13:22:30 Obstruct mark sleep apnea syndrome 19629456 Active 2017 Shanti Loredo MD Attn: Charlienaseem may,[address] [facility], [place], [address], [place] [facility] 4 13:22:30 Family history of breast cancer 2 gene mutation 319352007 Active 2017 mom who had breast & ovarian cancer Yokasta Banegas PA-C Attn: Pati g,[address] [facility], [place], [address], [place] [facility] 8 13:38:47 Vitamin D deficien cy 00390061 Active 2017 Yokasta Banegas PA-C Attn: Accountin g,[address] [facility], [place], [place], [address] [place] [address], [place] - [facility] 8 11:49:03 Morbid obesity 239230097 Active 2021 Shahla Neil APN, PRESS FEEDER-C Attn: Pati g,[address] [facility], [place], [place], [address] [place] [address] 2, [facility] - [facility] 2 10:26:10 Lumbago with sciatica 411725369 Active 2021 Shahla Neil APN, FNP-C Attn: Charliein g,[address] [facility], [place], [place], [address] [place] [address] 2, [facility] - [facility] 2 10:26:34 Gastroes ophageal reflux disease without esophagi tis 409093018 Active 2021 Shahla Neil APN, FNP-C Attn: Pati g,[address] [facility], [place], [place], [address] [place] [address] 2, [facility] - [facility] 2 10:38:01 Tobacco user 184326687 Active 2021 Shahla Neil APN, FNP-C Attn: Pati g,[address] [facility], [place], [place], [address] [place] [address] 2, [facility] - [facility] 2 10:38:02 Prediabe jonelle 603735453 Active 2021 Shahla Neil APN, FNP-C Attn: Pati g,[address] [facility], [place], [place], [address] [place] [address] 2, [facility] - [facility] 2 10:25:01 Hypothyr oidism 43330902 Active 2021 Shahla Neil APN, FNP-C Attn: Pati g,[address] [facility], [place], [place], [address] [place] [address] 2, [facility] - [facility] 2 10:25:17 Edema of lower extremit y 204163055 Active 2021 Shahla Neil APN, FNP-C Attn: Pati may,[address] [facility], [place], [address], [place] [facility] 2 23:52:12 Pain in lower limb 21911836 Completed 202106/16/2023 Shanti Loredo MD Attn: Pati may,[address] [facility], [place], [address], [place] [facility] 4 15:23:01 Deep venous thrombos is of lower extremit y 550443018 Active 2021 CHARLA ArceN, PRESS FEEDER-C Attn: Pati may,[address] [facility], [place], [address], [place] [facility] 2 12:56:35 Hyperten sive disorder 29162317 Active 2021 Shanti Loredo MD Attn: Charlienaseem may,[address] [facility], [place], [address], [place] [facility] 2 11:13:12 Adrenal mass 825720615 Active 2021 Shanti Loredo MD Attn: Charlienaseem may,[address] [facility], [place], [address], [place] [facility] 2 11:14:15 Liver mass 486519097 Active 2021 Shanti Loredo MD Attn: Charlienaseem may,[address] [facility], [place], [address], [place] [facility] 2 11:14:18 Lymphede ma of lower extremit y 283860803 Active 2023 Arnaldo Tran MD Attn: Pati lalo,[address] [facility], [place], [address], [place] [facility] 4 20:48:28 Excision of bilatera l breasts Active 202301-21-2010 Shanti Loredo MD Attn: Pati lalo,[address] [facility], [place], [address], [place] [facility] 4 05:31:11 Problem Notes None recorded. Procedures Surgical History Date Name Laterality Status Provider Name and Address Organization Details Recorded Time 11/25/19 24 Date of Last Pap Smear completed Bernadette Sampson MA [facility] 04/03/2025 17:03:02 06/15/19 12 Other completed Bernadette Sampson [facility] 11/17/2017 14:30:25 06/15/19 11 Nipple/areola reconstruction completed Yokasta Banegas PA-C Attn: Accounting,[address] [facility], [place], [address], [facility] 09/16/2017 13:41:36 01/22/20 10 Mastectomy completed Yokasta Banegas PA-C Attn: Accounting,[address] [facility], [place], [address], [facility] 09/16/2017 13:41:56 Imaging Results None recorded. Procedure Notes None recorded. Medical Equipment None Reported. Allergies Allergen ID Allergen Name Allergen Category Reaction Reaction Severity Criticality Documentation Date Start Date Code Code System Note Provider Name and Address Organization Details Recorded Time 363376 latex environme nt,medica tion rash Not available Not available 03/04/2022 53563 91 RxNorm red welps - whitaker id adhes mark Tsang, JORDON goode, [facility] 5 16:02:31 20001220 Adhesive agent (substanc e) environme nt,medica tion Not available Not available low 04/03/20252023 79799 0007 SNOMED unrec ogniz ed react ion (text : Natalia ss, code: [id number]) (from exter nal sourc e) Not [...] propionate 50 mcg/actuat ion nasal spray,susp ension [place] 1 spray every day by intranas al [...] Updated DateTime 5 162.56 cm 50.8 kg/m2 527041. 34 g 97.8 [degF] 74 /min 99 % 16 /min 145/84 mm[Hg] Chantale Grayson MA [facility] 5 09:19:44 Social History Question Answer Notes LastModified by Organizat ion Details LastModified Time Tobacco Smoking Status Current Every Day Smoker JORDON Rahman, [place] - [facility] 07/27/2017 09:18:45 Do You Have An Advance [...] Illicit Or Recreational Drugs Have You Used? Denies Information not available 11/17/[address] [employer] Information not available 07/27/2017 Are There Any Guns Present In Your Home? No Information not available 08/16/2021 Live Alone Or With Others? With Others Information not available 11/17/2017 Marital Status Informatio n not available 07/27/2017 What Was The [...] Much Tobacco Do You Smoke? 0.5 PPD 9/5/25 Information not available 02/17/2025 General Stress Level [...] anxious, or unable to sleep at night)? EF03286-4 Information not available 08/16/2021 Family History Relationship Description Onset Age of this Age Resolved Age Notes LastModified by Organization Details LastModified Time Mother Malignant neoplasm of breast 62 [place] Not available 2017 14:22:58 Mother Cerebrovascu lar accident kyoungma Not available 05/2018 09:17:31 Mother Depressive disorder kyoungma Not available 2017 09:17:37 Mother Hypertensive disorder don Not available 2017 09:18:05 Mother Hypercholest erolemia don Not available 2017 09:18:13 Mother Malignant neoplasm of ovary 59 [place] Not available 2017 14:23:47 Father Diabetes mellitus don Not available 2017 09:17:45 Father Heart disease don Not available 2017 09:17:54 Father Hypercholest erolemia rob Not available 2017 14:22:22 Notes:10/05/23, 10/09/23, Medical History Condition Response High Blood Pressure N Breast Cancer N Thyroid Problems Y Kidney or Bladder Problems N Lung Disease N Depression N Blood Clots N GI Problems N Acne N Have you had a mammogram in the last yea r? N Breast Problem N Eating Disorder N Anemia N Anesthesia Complications Y Headaches/Migraines Y Ovarian Cancer N Diabetes N Anxiety Disorder Y Muscle, Joint, or Bone Problems N Blood [...] ICD10 Code Diagnosis IMO Codes Diagnosis Note [id number] MD Gurdeep Moran [address] [place] [address] 04/03/2025 16:51:13 04/05/2025 11:35:37 Obstructive sleep apnea syndrome 86010032 G47.33 74262660 ChronicHom e sleep study showed moderate LEORA 03/2024.Di scussed trying Zepbound to help with LEORA and elevated BMI. Zepbound denied by insurance. Will continue to encourage CPAP use. Smoker 26197056 F17.200 smoking 1ppd for 31 years. Body mass index 40+ - severely obese 222275459 E66.01 6490330 BMI was 50 in office today. Hypothyroidism 71370969 E03.9 ChronicPer last visit, pt stopped taking medication as she thought it was contributi ng to her gaining weight and didn't want to restart.La st TSH was elevated at 5.4.Patien t requesting refills on levo today. Plan- Restart levothyrox ine 50 mcg daily Deep venou s thrombosis of lower extremity 278781438 I82.409 Hx of DVTWas following with hematology .Per last visit pt stopped taking xarelto, and declined follow-up with hematology . She requests refills and expresses that she wants to continue taking xarelto today. Plan- Script sent in to restart Xarelto 20 mg tablet daily- will continue at future visits to encourage her to follow-up with hematology Gastroesop hageal reflux disease without esophagitis 940940435 K21.9 Chronic,Pt states she lost her medicine and would like refills today. States that this medication is helping control her GERD symptoms. Plan- restart omeprazole 20 mg daily Toothache 31342732 K08.8 9 [address] AcutePainf [address] to palpation. tooth decay noted on exam. Patient reports possible fevers. Hurts to chew. Encouraged patient to call dentist for possible earlier appointmen t. Will give a course of antibiotic s and antiseptic mouthwash today. [id number] MD Gurdeep Moran [address] [place] [address] 05/04/2025 09:07:17 05/05/2025 11:17:12 Cellulitis of left lower limb 9052316569 6451008 L03.074 [id number] Acute, stable- patient reports improved pain, Left [...] by Organization Details LastModified Time None Recorded Payers Encounter Date Sequence Insurance Name Policy Number Policy Haley Covered Member ID Haley Member ID Guarantor Name 05/04/2025 1 [employer] [employer] [place] - DOS ON OR AFTER 2020 (MEDICAID REPLACEMENT - HMO) Keiko Masterson [id number] Keiko Masterson Notes Date Note Type Note Provider Name and Address Organization Details Recorded Time 05/04/2025 text/html 54 y/o F with PMHx [...] went to [facility] with the following medications/treatment :- Keflex 500 mg 3 times a day [...] injuries Baudilio Barger MD Attn: Accounting,[address] [facility], [place], [address], [facility] 05/05/2025 07:36:36 OBGyn Episode No OBEpisode recorded.
--- OUTSIDE RECORDS SUMMARY | 2025-05-31 18:26 | XMS_ITS | Encounter Summary ---
Author Organization [facility] Address [address] [place] [address] Phone Care Team Providers Care Radio Sales Account Executive Name Role Phone Shanti Bishop MD Primary Care Provider + [phone] Encounter Details Date Type Department Care Team (Late Contact Info) Description 03/27/2022 Telephone [facility] Referral Management Services [address] [place] [address] Serg Silva MD [address] [place] [address] Social History Tobacco Use Types [...] encounter Miscellaneous Notes * Telephone Encounter - Serg Silva MD - 03/27/2022 9:03 AM CDT We are changing the order to MRI WITHOUT CONTRAST * Telephone Encounter - Shakira Gupta - 03/27/2022 7:20 AM CDT Images from the original note were not included. SITUATION: Insurance / Payor requesting provider review Denied prior authorization. BACKGROUND: Referral unable to be processed. ASSESSMENT: Request for provider review due to the following reason(s): Lack of necessary clinical information. 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
--- OUTSIDE RECORDS SUMMARY | 2025-05-31 18:26 | XMS_ITS | Continuity of Care Document ---
Author Organization [facility] IM Address [address] [facility] [address] [place] [address] Care Team Providers Care Insurance Actuary Name Role Phone HEIKE BROWN Primary Care Provider Assessment Encounter Date Assessment Date Assessment LastModified by Organization Details LastModified Time 04/03/2025 04/03/2025 follow-up in 2 month Pt's case was discussed w/resident. Documentation was reviewed, and I agree w/resident's note. Dr. Barger [email or web address] Not available 04/05/2025 10:33:09 Plan of Treatment Reminders Order Date Submit Date Provider Last Modified By Organization Details Last Modified Time Details Appointments None recorded. Lab None recorded. Referral None recorded. Procedures None recorded. Surgeries None recorded. Imaging None recorded. Medication Orders chlorhexidi ne gluconate 0.12 % mouthwash 2024 025 [facility]acy #[id number], [address] [place], [address], 18:09:48 amoxicillin 500 mg capsule 2024 025 [facility] #[id number], [address] [place], [address], 05:02:41 Xarelto 20 mg tablet 2024 025 [facility] #[id number], [address] [place], [address], 18:09:46 omeprazole 20 mg capsule,del ayed release 2024 025 [facility] #[id number], [address] [place], [address], 18:09:47 levothyroxi ne 50 mcg tablet 2024 025 [facility] #[id number], [address] [place], [address], 18:09:47 Patient TargetsNo targets recorded. Patient Instructions Encounter Date Encounter Id Patient Instructions Last Modified By Organization Details Last Modified Time 04/03/2025 [id number] tooth and gum pain: care instructions [email or web address] Not available 04/03/2025 18:09:41 body mass index: care instructions [email or web address] Not available 04/03/2025 18:09:41 learning about healthy weight jdraus Not available 04/03/2025 18:09:41 sleep apnea: car e instructions jdraus Not available 04/03/2025 18:09:41 Quitting Tobacco : Care Instructions jdraus Not available 04/03/2025 18:09:41 hypothyroidism: care instructions jdraus Not available 04/03/2025 18:09:42 Reason for Referral None Reported. Problems Name Problem SNOMED Code Status Onset Date Resolution Date Notes Provider Name and Address Organization Details Recorded Time BRCA2 gene mutation detected 223461643 Active 2009 s/p preventiv e jayna mastectom ies, neg pathology Yokasta Banegas PA-C Attn: Pati may,[address] [place], [address], [facility] - [facility] 8 13:42:15 Malignan t neoplasm of breast 187497352 Completed 201009/16/2017 BRA Yokasta Banegas PA-C Attn: Pati may,[address] [place], [address], [facility] - [facility] 8 13:37:11 Lumbago with sciatica 167711902 Completed 201706/16/2023 Shanti Loredo MD Attn: Pati may,[address] [place], [address], [place] [facility] 4 15:22:22 Allergic rhinitis 80221648 Completed 201703/04/2022 Cheyanne Carr MA null, [place] [facility] 2 09:44:04 Increase d frequenc y of urinatio n 618500203 Completed 201706/16/2023 Shanti Loredo MD Attn: Accountin g,[address] [facility], [place], [address], [place] [facility] 4 15:21:45 Liver function tests outside referenc e range 820444316 Completed 201706/16/2023 Shanti Loredo MD Attn: Accountnaseem g,[address] [facility], [place], [address], [place] [facility] 4 15:22:06 Obstruct mark sleep apnea syndrome 32865671 Completed 201706/16/2023 Shanti Loredo MD Attn: Accountin g,[address] [facility], [place], [address], [place] [facility] 4 13:22:30 Obstruct mark sleep apnea syndrome 80012074 Active 2017 Shanti Loredo MD Attn: Accountin g,[address] [facility], [place], [address], [place] [facility] 4 13:22:30 Family history of breast cancer 2 gene mutation 506795789 Active 2017 mom who had breast & ovarian cancer Yokasta Banegas PA-C Attn: Accountin g,[address] [facility], [place], [address], [place] [facility] 8 13:38:47 Vitamin D deficien cy 16050257 Active 2017 Yokasta Banegas PA-C Attn: Accountin g,[address] [facility], [place], [address], [place] [facility] 8 11:49:03 Morbid obesity 140269664 Active 2021 Shahla Neil APN, ASSEMBLER B[employer]-C Attn: Accountin g,[address] [facility], [place], [place], [address] [place] [address] 2, [facility] - SIF 2 10:26:10 Lumbago with sciatica 661581640 Active 2021 Shahla Neil APN, ASSEMBLER B[employer]-C Attn: Accountin g,[address] [facility], [place], [place], [address] [place] [address] 2, [facility] - S[facility] 2 10:26:34 Gastroes ophageal reflux disease without esophagi tis 355118661 Active 2021 Shahla Neil APN [employer]SEMBLER [employer]-C Attn: Accountin g,[address] [facility], [place], [place], [address] [place] [address] 2, [facility] - S[facility] 2 10:38:01 Tobacco user 621857154 Active 2021 Shahla Neil APN, ASSEMBLER B[employer]-C Attn: Accountin g,[address] [facility], [place], [place], [address] [place] [address] 2, [facility] - [facility] 2 10:38:02 Prediabe jonelle 139234275 Active 2021 Shahla Neil APN, ASSEMBLER B[employer]-C Attn: Accountin g,[address] [facility], [place], [place], [address] [place] [address] 2, [facility] - [facility] 2 10:25:01 Hypothyr oidism 58799709 Active 2021 Shahla Neil APN, ASSEMBLER BODY-C Attn: Accountin g,[address] [facility], [place], [place], [address] [place] [address] 2, [facility] - [facility] 2 10:25:17 Edema of lower extremit y 629023078 Active 2021 Shahla Neil APN, ASSEMBLER B[employer]-C Attn: Accountin g,[address] [facility], [place], [place], [address] [place] [address] 2, [facility] - [facility] 2 23:52:12 Pain in lower limb 03993662 Completed 202106/16/2023 Shanti Loredo MD Attn: Pati lalo,[address] [facility], [place], [address], [place] [facility] 4 15:23:01 Deep venous thrombos is of lower extremit y 448932048 Active 2021 CHARLA ArceN, ASSEMBLER B[employer]-C Attn: Charlienaseem may,[address] [facility], [place], [address], [place] [facility] 2 12:56:35 Hyperten sive disorder 15873771 Active 2021 Shanti Loredo MD Attn: Pati lalo,[address] [facility], [place], [address], [place] [facility] 2 11:13:12 Adrenal mass 887779317 Active 2021 Shanti Loredo MD Attn: Pati may,[address] [facility], [place], [address], [place] [facility] 2 11:14:15 Liver mass 576386184 Active 2021 Shanti Loredo MD Attn: Pati lalo,[address] [facility], [place], [address], [place] [facility] 2 11:14:18 Lymphede ma of lower extremit y 164119227 Active 2023 Arnaldo Tran MD Attn: Pati lalo,[address] [facility], [place], [address], [place] [facility] 4 20:48:28 Excision of bilatera l breasts Active 202301-21-2010 Shanti Loredo MD Attn: Pati lalo,[address] [facility], [place], [address], [place] - [facility] 4 05:31:11 Problem Notes None recorded. Procedures Surgical History Date Name Laterality Status Provider Name and Address Organization Details Recorded Time 11/25/19 24 Date of Last Pap Smear completed Bernadette Sampson MA [facility] 04/03/2025 17:03:02 06/15/19 12 Other completed Bernadette Sampson [facility] 11/17/2017 14:30:25 06/15/19 11 Nipple/areola reconstruction completed Yokasta Banegas PA-C Attn: Accounting,[address] [facility], [place], [address], [facility] 09/16/2017 13:41:36 01/22/20 10 Mastectomy completed Yokasta Banegas PA-C Attn: Accounting,[address] [facility], [place], [address], [facility] - [facility] 09/16/2017 13:41:56 Imaging Results None recorded. Procedure Notes None recorded. Medical Equipment None Reported. Allergies Allergen ID Allergen Name Allergen Category Reaction Reaction Severity Criticality Documentation Date Start Date Code Code System Note Provider Name and Address Organization Details Recorded Time 867312 latex environme nt,medica tion rash Not available Not available 03/04/2022 44311 91 RxNorm red welps - whitaker id adhes mark Kapoorzach, RMA null, [place] - [place] 5 16:02:31 920306 Adhesive agent (substanc e) environme nt,medica tion Not available Not available low 04/03/20252023 57751 0007 SNOMED unrec ogniz ed react ion (text : Natalia grimm, code: 11260 4003) (from exter nal sourc e) Not [...] oral route with meal(s) for 10 days. 04/205 completed Not Available Not Available Not Available [...] propionate 50 mcg/actuat ion nasal spray,susp ension [place] 1 spray every day by intranas al [...] and Address Organization Details Last Updated DateTime 162.56 cm 50 kg/m2 156822. 43 g 98.1 [degF] 96 % 86 /min 131/84 mm[Hg] [facility] 16:59:21 Social History Question Answer Notes LastModified by Organizat ion Details LastModified Time Tobacco Smoking Status Current Every Day Smoker Sherrell Catherine, JORDON null, [place] - [facility] 07/27/2017 09:18:45 Do You Have An Advance [...] Have You Had Close Contact With A [facility] While That Case Was Ill? No [...] Denies Information not available 11/17/2017 Education 12 [email or web address] Information not available 07/27/2017 Are There Any [...] anxious, or unable to sleep at night)? [id number] Information not available 08/16/2021 Family History Relationship [...] 09:18:13 Mother Malignant neoplasm of ovary 59 [email or web address] Not available 2017 14:23:47 Father Diabetes mellitus don Not available 2017 09:17:45 Father Heart disease [email or web address] Not available 2017 09:17:54 Father Hypercholest erolemia rob Not available 2017 14:22:22 Notes:10/05/23, 10/09/23, Medical History Condition Response High Blood Pressure N Breast Cancer N Kidney or Bladder Problems N Thyroid Problems Y Lung Disease N Blood Clots N Depression N GI Problems N Acne N Have [...] ICD10 Code Diagnosis IMO Codes Diagnosis Note [id number] MD Cassie Moran 14 [address] [facility] [place] [address] 04/03/2025 16:51:13 04/05/2025 11:35:37 Obstructive sleep apnea syndrome 04939605 G47.33 43622447 ChronicHom e sleep study showed moderate LEORA 03/2024.Di scussed trying Zepbound to help with LEORA and elevated BMI. Zepbound denied by insurance. Will continue to encourage CPAP use. Smoker 02100805 F17.200 smoking 1ppd for 31 years. Body mass index 40+ - severely obese 654945035 E66.01 1319635 BMI was 50 in office today. Hypothyroidism 15098671 E03.9 ChronicPer last visit, pt stopped taking medication as she thought it was contributi ng to her gaining weight and didn't want to restart.La st TSH was elevated at 5.4.Patien t requesting refills on levo today. Plan- Restart levothyrox ine 50 mcg daily Deep venou s thrombosis of lower extremity 159325994 I82.409 Hx of DVTWas following with hematology .Per last visit pt stopped taking xarelto, and declined follow-up with hematology . She requests refills and expresses that she wants to continue taking xarelto today. Plan- Script sent in to restart Xarelto 20 mg tablet daily- will continue at future visits to encourage her to follow-up with hematology Gastroesop hageal reflux disease without esophagitis 621097044 K21.9 Chronic,Pt states she lost her medicine and would like refills today. States that this medication is helping control her GERD symptoms. Plan- restart omeprazole 20 mg daily Toothache 88546368 K08.8 9 61720 AcutePainf ul to palpation. tooth decay noted on exam. Patient reports possible fevers. Hurts to chew. Encouraged patient to call dentist for possible earlier appointmen t. Will give a course of antibiotic s and antiseptic mouthwash today. Health Concerns Section Related Observation LastModified by Organization Detai ls LastModified Time None Recorded Concern Status LastModified by Organization Details LastModified Time None Recorded Payers Encounter Date Sequence Insurance Name Policy Number Policy Haley Covered Member ID Haley Member ID Guarantor Name 04/03/2025 1 [employer] [place] - DOS ON OR AFTER 2020 (MEDICAID REPLACEMENT - HMO) Keiko Masterson [id number] Keiko Masterson Notes Date Note Type Note Provider Name and Address Organization Details Recorded Time 04/03/2025 text/html ROS as noted in the [...] pain. Baudilio Barger MD Attn: Accounting[address] [place], [address], [place] [facility] 04/05/2025 10:33:23 OBGyn Episode No OBEpisode recorded.
--- OUTSIDE RECORDS SUMMARY | 2025-05-31 18:26 | XMS_ITS | Clinical Summary ---
Author Organization [facility] Address [address] [place] [address] Care Team Providers Care Adoption Worker Name Role Phone Stefanoluan Yokasta Fischer PA Unavailable [phone] Shanti Bishop MD Primary Care Provider [phone] Allergies Active Allergy Reactions Criticality Noted Date Comments Adhesive Redness Low 02/05/2024 Medications omeprazole (PriLOSEC) 40 mg capsule take 1 capsule (40MG) by oral route every day before a meal 90 3 2 Active escitalopram (LEXAPRO) 10 mg tablet Take 1 tablet (10 mg total) by mouth daily 30 tablet 2 2 Active Additional Information Patient not taking.Reported on 05/01/2025 rivaroxaban (XARELTO) 20 mg tabletIndicatio ns:Venous Thrombosis Take 1 tablet (20 mg total) by mouth daily with dinner Active levothyroxine (SYNTHROID) 50 mcg tabletIndicatio ns:hypothyroidi sm Take 1 tablet (50 mcg total) by mouth superintendent maintenance before breakfast 4 Active carbamide peroxide (DEBROX) 6.5 % otic solutionIndicat ions:Impacted Cerumen Administer 5 drops into each ear 2 (two) times a day 15 mL 4 Active Additional Information Patient not taking.Reported on 05/01/2025 acetaminophen (TYLENOL) 500 mg tablet Take 2 tablets (1,000 mg total) by mouth every 6 (six) hours as needed for pain 30 tablet 4 Active Additional Information Patient not taking.Reported on 05/01/2025 ibuprofen (ADVIL,MOTRIN) 600 mg tablet Take 1 tablet (600 mg total) by mouth every 6 (six) hours as needed for pain 30 tablet 4 Active Additional Information Patient not taking.Reported on 05/01/2025 oxyCODONE (ROXICODONE) 5 mg immediate release tabletIndicatio ns:Pain Take 1 tablet (5 mg total) by mouth every 4 (four) hours as needed for pain 5 tablet 4 Active Additional Information Patient not taking.Reported on 05/01/2025 mupirocin (BACTROBAN) 2 % ointmentIndicat ions:Abrasion of left knee, initial encounter Apply topically 3 (three) times a day 22 g Active cephalexin (KEFLEX) 500 mg capsuleIndicati ons:Cellulitis of left leg Take 1 capsule (500 mg total) by mouth 3 (three) times a day for 7 days 21 capsule 5 05/08/20 25 Active Problems Problem Noted Date Diagnosed Date Vaginal inclusion cyst 07/29/2024 Labial cyst 12/14/2023 Overview (12/14/2023): - Right labial cyst noted on exam, per patient has been present for >10 years - Persistent despite patient popping the area a few years ago - No signs or symptoms of infection, nontender Plan - Given no fluctuant area on exam, suspect I&D in office would unlikely resolve the cyst - Recommend EUA and excision of right labial cyst in the OR if patient desires definitive management - Consent signed with Dr. Campo, case request placed, surgery information packet given - Monitor areas of skin irritation on subsequent exams - Likely hold Xarelto for 5 days prior to surgery. For CPAP. Depression, major, single episode, moderate 06/2023 Moderate episode of recurrent major depressive d isorder 12/14/2023 Overview (12/14/2023): - Denies SI, thoughts of self harm today - Endorses safe in current living arrangement with her brother Plan - Lexapro 10 mg daily sent to local pharmacy Tobacco use 04/13/2022 Overview (12/14/2023): - Currently smokes 1 ppd Plan - Strongly recommend smoking cessation, especially given upcoming surgery - She declines smoking cessation counseling or cessation therapy at this time BRCA gene mutation positive in female 04/13/2022 Overview (12/14/2023): -Risk of ovarian cancer by age 70 is 10-27% -S/p bilateral mastectomies and reconstruction, patient notes prior traumatic experience with physicians -OSH US with small L ovarian cyst, unable to better characterize given poor visualization of US Plan -Strongly recommended rrBSO, especially given she is postmenopausal -Patient became tearful during discussion, declined to continue. She and her sister express understanding for recommendation of BSO, decline additional counseling at this time -Consider repeat pelvic US for screening if patient amenable Hypothyroidism 04/08/2012 Overview (09/17/2016): Hypothyroidism Depression 04/08/2012 Overview (09/17/2016): Depression Gastroesophageal reflux disease 04/08/2012 Overview (09/18/2016): GERD (gastroesophageal reflux disease) Adrenal mass 04/08/2012 Overview (09/18/2016): Adrenal mass, left Anxiety 04/08/2012 Overview (09/19/2016): Anxiety Current smoker 04/08/2012 Overview (09/19/2016): Smoker Adiposity 04/08/2012 Overview (09/19/2016): Obesity Resolved Problems Problem Noted Date Diagnosed Date Resolved Date Abnormal uterine bleeding (AUB) 04/13/2022 12/14/2023 Encounters Date Type Department Care Team Description 05/01/2025 7:45 PM MOBILE PET GROOMER Office Visit [facility] [address] [place] [id number] Kelly Daigle, ASSISTANT PRODUCT MANAGER Cellulitis of left leg (Primary Dx); Abrasion of left knee, initial encounter; Acute pain of left knee from Last 3 Months Immunizations Immunization Administration Dates Next Due Influenza, Trivalent, Preservative Free, Intramu scular 03/16/2012 Surgical History Surgery Date Site/Laterality Comments MASTECTOMY 06/15/2009 - 06/14/2010 Mastectomy REVISION RECONSTRUCTED BREAST multiple Medical History Medical History Date Comments Gastroesophageal reflux disease GERD Disorder of thyroid Thyroid dise ase Depression Depression Anxiety disorder Anxiety Hx Other Medical adrenal mass Hx Other Medical breast 1 BRCA 2 positive PONV (postoperative nausea and vomiting) breast surgery 15 years, done well with subsequent surgeries Hypertension Hypothyroidism Obesity Cancer (HCC) Motion sickness Family History Medical History Relation Name Comments Diabetes Father Diabetes mellit us; Breast cancer Mother Cancer, breast ; Hypertension Mother Hypertension; Ovarian cancer Mother Cancer, ovari an; Stroke Mother Stroke; Heart disease Other 1 Family history of Heart disease; Other Other 2 Family history of lung problens; Anesthesia problems Neg Hx Relation Name Status Comments Father Mother Other 1 Other 2 Social History Tobacco Use Types Packs/Day Years Used Date Smoking Tobacco: Every Day Cigarettes 0.5 37 Started: 1987 Smokeless Tobacco: Never Tobacco Cessation:Ready to Q uit: Not Asked; Counseling Given: Not Answered AUDIT-C Answer Date Recorded Q1: How often do you have a drink containing alcohol? Never 09/07/2024 Q2: How many drinks containi ng alcohol do you have on a typical day when you are drinking? Patient does not drink Q3: How often do you have si x or more drinks on one occasion? Never 09/07/2024 Hunger Vital Sign Answer Date Recorded Within the past 12 months, y ou worried that your food would run out before you got the money to buy more. Never true 12/14/19 24 Within the past 12 months, t he food you bought just didn't last and you didn't have money to get more. Never true 12/14/2023 Personal Safety Answer Date Recorded Have you ever been in or are you currently in a harmful physical or emotional relationship or is someone making you feel afraid or unsafe? Denies 09/07/2024 Comments No Sex and Gender Information Value Date Recorded Sex Assigned at Not on file Legal Sex Female 2:33 AM MOBILE PET GROOMER Gender Identity Not on file Sexual Orientation Not on file Obstetrics History Para Term AB IAB SAB Ectopic Multiple Livin g Live Births 2 1 1 1 1 1 Date Outcome GA Total Labor Labor/2nd/3rd Weight Sex Type Anes PTL Rubi A1 A5 Name Clin Term Vag-Spo nt SAB Last Filed Vital Signs Vital Sign Reading Time Taken Comments Blood Pressure 140/74 05/01/2025 7:48 PM MOBILE PET GROOMER Pulse 79 05/01/2025 7:48 PM MOBILE PET GROOMER Temperature 36.6 C (97.9 F) 05/01/2025 7:48 PM MOBILE PET GROOMER Respiratory Rate 22 05/01/2025 7:48 PM MOBILE PET GROOMER Oxygen Saturation 97% 05/01/2025 7:48 PM MOBILE PET GROOMER Inhaled Oxygen Concentration - - Weight 133.5 kg (294 lb 6.4 oz) 05/01/2025 7:48 PM MOBILE PET GROOMER Height 162.6 cm (5' 4) 05/01/2025 7:48 PM MOBILE PET GROOMER Body Mass Index 50.53 05/01/2025 7:48 PM MOBILE PET GROOMER Plan of Treatment Health Maintenance Due Date Last Done Comments Breast Cancer Screening-Mammogram 1971 Cervical Cancer Screening 1971 Colon Cancer Screening-Colonoscopy 1971 Depression Screening 1971 Hepatitis C Screening 1971 DTaP/Tdap/Td Vaccine (1 - Tdap) 1982 Hepatitis B Screening 1989 Regular Well Visit/Exam 18-64 1989 Pneumococcal vaccine <65 (1 of 2 - PCV) 1990 Zoster Vaccine (1 of 2) 2021 Influenza Vaccine (#1) 2025 03/16/2012 Insurance IDPA [facility] [place] Care Teams Adoption Worker Relationship Specialty Start Date End Date Shanti Bishop MD [address] [place] [address] PCP - General Family Medicine 04/11/22 Yokasta Banegas PA [address] [place] [address] Physician Physical Medicine Physician Internal Medicine 08/03/17
--- OUTSIDE RECORDS SUMMARY | 2025-05-31 18:26 | XMS_ITS | Encounter Summary ---
Author Organization [facility] Address [address] [place] [address] Phone Care Team Providers Care Duplication Specialist Name Role Phone Shanti Bishop MD Primary Care Provider [phone] Encounter Details Date Type Department Care Team (Late st Contact Info) Description 04/18/2022 Telephone [facility] Referral Management Services [address] [place] [address] Serg Silva MD [address] [place] [address] Social History Tobacco Use Types [...] suspected to have Coronavirus/COVID-19? No / Unsure 04/15/2022 11:40 AM CDT documented as of this encounter Miscellaneous Notes * Telephone Encounter - Shakira Gupta Beryl - 04/18/2022 2:12 PM CDT Images from the original note were not included. SITUATION:DENIED Insurance / Payor requesting provider review MRI and MRA ABDOMEN W/WO CONTRAST . BACKGROUND: Referral unable to be processed. ASSESSMENT: Request for provider review due to the following reason(s): Lack of necessary clinical information. RECOMMENDATION: Based on the above information the provider has the following option(s): Additional clinical documentation needed for insurance provider. Reference #: [id number] Shakira Gupta [facility] On[facility] - Centralized Referral Management 04/18/22, 2:06 PM documented in this encounter Plan of Treatment Not on file documented as of this encounter Visit Diagnoses Not on filedocumented in this encounter Additional Health Concerns Infection Onset Date Last Indicated Resolved Time Respiratory Rule Out - RPA 08/01/2022 08/01/2022 0 08/01/2022 5:39 PM [employer]AL COVID - 19 Confirmed 08/01/2022 08/01/2022 023 12:16 AM [employer] documented as of this encounter Care Teams Duplication Specialist Relationship Specialty Start Date End Date Shanti Bishop MD [address] [place] [address] PCP - General Obstetrics & Gynecology 03/18/22 documented as of this encounter
== END 2025-05-31 18:02 | disposition home or self-care (01) ==
PROVIDERS: Emergency Provider Nurse Practitioner
DX: J06.9 Acute upper respiratory infection, unspecified (principal); S80.212A Abrasion, left knee, initial encounter; W01.0XXA Fall on same level from slipping, tripping and stumbling without subsequent striking against object, initial encounter; Z23 Encounter for immunization
CPT/HCPCS: 90471; 90715; 99213; G0463